=== PATIENT | female | born 1990 | race African-American/Black ===

== ENCOUNTER 2019-01-07 17:57 | Emergency (ER) | payer OTHER ==
[~2019-01-07] VITALS: Ht 160 cm; Wt 55.3 kg
--- NOTE | 2019-01-07 17:59 | NUR ---
CALLED TO TRIAGE,PATIENT IN RESTROOM
--- NOTE | 2019-01-07 18:24 | NUR ---
[facility] [employer] REFEREE AT BEDSIDE FOR EVAL.
[2019-01-07] MEDS ORDERED: IV NS 0.9% 1,000 ML BAG IV ONE (18:30)
--- NOTE | 2019-01-07 18:30 | NUR ---
PT UNABLE TO PROVIDE URINE SAMPLE AT THIS TIME.
--- NOTE | 2019-01-07 18:36 | NUR ---
U/S TECH AT BEDSIDE FOR PELVIC ULTRASOUND.
[2019-01-07 18:37] LABS: BASOPHILS # (AUTO) 0.1 /CMM (0.0-0.2); BASOPHILS % (AUTO) 0.9 % (0.0-2.0); EOSINOPHILS % (AUTO) 0.7 % (0.0-6.0); HEMATOCRIT 39 % (33-45); HEMOGLOBIN 13.4 g/dL (11.5-14.8); LYMPHOCYTES # (AUTO) 1.9 /CMM (0.8-4.8); LYMPHOCYTES % (AUTO) 33.4 % (20.0-44.0); MEAN CORPUSCULAR HGB CONC 34 g/dl (31.0-36.0); MEAN CORPUSCULAR VOLUME 91 fL (82-100); MONOCYTES # (AUTO) 0.5 /CMM (0.1-1.30); MONOCYTES % (AUTO) 7.9 % (2.0-12.0); NEUTROPHILS # (AUTO) 3.3 /CMM (1.8-8.9); NEUTROPHILS % (AUTO) 57.1 % (43.0-81.0); PLATELET COUNT (AUTO) 203 /CMM (150-450); RED BLOOD CELL COUNT(AUTO) 4.34 MIL/uL (4.0-5.2); WHITE BLOOD COUNT (AUTO) 5.8 K/uL (4.3-11.0)
[2019-01-07 18:49] LABS: CALCIUM, SERUM 8.4 mg/dL (8.5-10.1); CREATININE 0.8 mg/dL (0.6-1.3); POTASSIUM 4.4 mmol/L (3.5-5.1)
--- NOTE | 2019-01-07 19:16 | NUR ---
URINE SPECIMEN COLLECTED AND SENT TO LAB
--- NOTE | 2019-01-07 19:20 | NUR ---
RECEIVED PATIENT IN BED RM 09 A/OX4.VS STABLE IN NO ACUTE DISTRESS.AWAITING FOR ORDERS.
--- NOTE | 2019-01-07 19:31 | NUR ---
REPORT GIVEN TO DENEEN YANEZ FOR NIKI.
[2019-01-07 19:48] LABS: BILIRUBIN,URINE Negative (NEGATIVE); BLOOD, URINE Negative Ery/uL (NEGATIVE); COLOR,URINE Yellow (YELLOW); KETONES,URINE Negative (NEGATIVE); LEUKOCYTE ESTERASE ,URINE Negative (NEGATIVE); NITRITE, URINE Negative (NEGATIVE); PROTEIN,URINE Negative (NEGATIVE); UGLUCOSE Negative (NEGATIVE)
[2019-01-07 19:49] LABS: APPEARANCE,URINE CLEAR (CLEAR)
[2019-01-07 20:03] LABS: BACTERIA,URINE Few /HPF (None Seen); RBC,URINE 0-2 /HPF (0-2); SQUAMOUS EPITHELIAL CELL,UR Moderate /HPF (None Seen); WBC,URINE 0-2 /HPF (0-3)
--- NOTE | 2019-01-07 20:20 | NUR ---
SALINE LOCK REMOVED WITH NEEDLE INTACT.NO BLEEDING NOTED.
[2019-01-07 20:34] VITALS: BP 130/74
--- NOTE | 2019-01-07 20:39 | NUR ---
Patient discharged to home in stable condition. Written rx and verbal after care instructions given. Patient verbalizes understanding of instruction.
== END 2019-01-07 20:40 | disposition home or self-care (01) ==
LOC: ER 18:04
DX: R10.2 Pelvic and perineal pain (principal); G89.29 Other chronic pain; J45.909 Unspecified asthma, uncomplicated; F12.10 Cannabis abuse, uncomplicated; F10.10 Alcohol abuse, uncomplicated; F17.200 Nicotine dependence, unspecified, uncomplicated; Y90.9 Presence of alcohol in blood, level not specified; Z88.2 Allergy status to sulfonamides; Z88.1 Allergy status to other antibiotic agents
CPT/HCPCS: 36415; 76856; 80048; 81001; 84702; 85025; 99284; J7030; 81000-TC